=== PATIENT | female | born 1975 | race Caucasian/White ===

== ENCOUNTER → 2018-09-23 | Outpatient (CLI) | payer OTHER ==
--- NOTE | 2018-09-23 11:45 | XR ---
EXAMINATION TYPE: XR chest 2V DATE OF EXAM: 09/23/2018 COMPARISON: 07/23/2017 HISTORY: Chest pain TECHNIQUE: Frontal and lateral views of the chest are obtained. FINDINGS: There is no focal air space opacity. No evidence for pneumothorax. No pleural effusion. The cardiac silhouette size is within normal limits. The osseous structures are grossly intact. IMPRESSION: 1. No acute cardiopulmonary process.
== END | disposition home or self-care (01) ==
LOC: RADXRMAIN 10:56
PROVIDERS: ATTEND Internal Medicine Hematology & Oncology
DX: C50.312 Malignant neoplasm of lower-inner quadrant of left female breast (principal); D50.0 Iron deficiency anemia secondary to blood loss (chronic); F41.9 Anxiety disorder, unspecified; Z17.0 Estrogen receptor positive status [ER+]
CPT/HCPCS: 71046

== ENCOUNTER → 2020-01-12 | Outpatient (CLI) | payer BC ==
--- NOTE | 2020-01-12 14:37 | XR ---
EXAMINATION TYPE: XR chest 2V DATE OF EXAM: 01/12/2020 COMPARISON: Prior chest x-ray September 23, 2018 HISTORY: Breast cancer. TECHNIQUE: Frontal and lateral views of the chest are obtained. FINDINGS: There is no focal air space opacity, pleural effusion, or pneumothorax seen. The cardiac silhouette size is within normal limits. The osseous structures are intact. Overlying bilateral kaleigh ast implants are redemonstrated. IMPRESSION: No acute cardiopulmonary process. No significant change from prior.
== END | disposition home or self-care (01) ==
LOC: RADXRMAIN 13:55
PROVIDERS: ATTEND Internal Medicine Hematology & Oncology
DX: C50.312 Malignant neoplasm of lower-inner quadrant of left female breast (principal); D50.0 Iron deficiency anemia secondary to blood loss (chronic); F41.1 Generalized anxiety disorder; Z17.0 Estrogen receptor positive status [ER+]
CPT/HCPCS: 71046

== ENCOUNTER 2021-05-02 11:08 | Day surgery (SDC) | payer BC ==
[2021-04-30 12:51] VITALS: BMI 31.1
[~2021-05-02 11:08] MED LIST: LACTATED RINGERS 1,000 ML IV SCH
[2021-05-02 11:29] VITALS: TEMP 97.8
[2021-05-02] MEDS ORDERED: LACTATED RINGERS 1,000 ML IV ONE (11:32)
[2021-05-02] MEDS ORDERED: PROPOFOL 10 MG/ML 20 ML VIAL IV ONE (12:41)
[2021-05-02] MEDS ORDERED: LIDOCAINE 1% INJ 10MG/ML (20 ML MDV) ONE (12:41)
--- NOTE | 2021-05-02 12:57 | P.PCN ---
Date of Procedure: 05/02/21 Procedure(s) Performed: BRIEF HISTORY: Patient is a 45-year-old pleasant white female scheduled for an elective colonoscopy as a part of screening for colorectal neoplasia. PROCEDURE PERFORMED: Colonoscopy. PREOPERATIVE DIAGNOSIS: Screening for colon cancer. IV sedation per Anesthesia. PROCEDURE: After informed consent was obtained, the patient, was brought into the endoscopy unit. IV sedation was administered by Anesthesia under continuous monitoring. Digital rectal examination was normal. Initially the Olympus CF-160 flexible video colonoscope was then inserted in the rectum, gradually advanced into the cecum without any difficulty. Careful examination was performed as the scope was gradually being withdrawn. Ileocecal valve and the appendiceal orifice were visualized and appeared normal. Prep was excellent. Mucosa of the cecum, ascending colon, transverse colon, descending colon, sigmoid colon, and rectum appeared normal. Retroflexion was performed in the rectum and no lesions were seen. The patient tolerated the procedure well. IMPRESSION: Normal-appearing colon from rectum to cecum and hence of colorectal neoplasia. RECOMMENDATIONS: Findings of this examination were discussed with the patient as well as a family. She was advised to have a repeat screening colonoscopy in 10 years..
[2021-05-02 13:22] VITALS: RESP 16
[2021-05-02 13:39] VITALS: BP 121/78; PULSE 56
== END 2021-05-02 14:05 | disposition home or self-care (01) ==
LOC: ORWHC2ENDO 11:08
PROVIDERS: ATTEND Internal Medicine Gastroenterology
DX: Z12.11 Encounter for screening for malignant neoplasm of colon (principal); Z88.2 Allergy status to sulfonamides
CPT/HCPCS: 81025; J2001; J2704; G0121; 45378

== ENCOUNTER → 2025-01-26 | Outpatient (CLI) | payer BC ==
--- NOTE | 2025-01-26 12:26 | XR ---
EXAMINATION TYPE: XR cervical spine comp DATE OF EXAM: 01/26/2025 12:03 PM COMPARISON: None CLINICAL INDICATION: Female, 49 years old with history of M542 CERVICALGIA; YCH, pain TECHNIQUE: The cervical spine was imaged in frontal, lateral, odontoid and bilateral oblique. FINDINGS: The osseous structures show normal alignment without evidence of an acute fracture. There are minimal osteophytes noted throughout the cervical spine on the anterior and lateral aspects of the vertebral bodies. The intervertebral disk spaces are narrowed at multiple levels. Pedicles are intact. Soft t issues are within normal limits. The odontoid appears intact. IMPRESSION: 1. No fracture or dislocation. 2. Mild degenerative disc disease changes of the cervical spine. [facility], , 01/26/2025 12:24 PM
== END | disposition home or self-care (01) ==
LOC: RADXRYALE 11:52
PROVIDERS: ATTEND Internal Medicine
DX: M50.30 Other cervical disc degeneration, unspecified cervical region (principal)
CPT/HCPCS: 72050

== ENCOUNTER → 2025-02-04 | Outpatient (CLI) | payer BC ==
--- NOTE | 2025-02-07 13:41 | BD ---
EXAMINATION TYPE: Axial Bone Density DATE OF EXAM: 02/04/2025 CLINICAL HISTORY: 49 years old Female. ICD-10 CODE: M81.0 OSTEOPENIA , Additional History: Height: 61 Weight: 192.5 FRAX RISK QUESTIONS: Alcohol (3 or more units per day): no Family History (Parent hip fracture): no Glucocorticoids (More than 3mos): no (Ex: prednisone, prednisolone, methylprednisolone, dexamethasone, and hydrocortisone). History of Fracture in Adulthood: foot Secondary Osteoporosis: 1. Type 1 Diabetes: no 2. Hyperthyroidism: no 3. Menopause before 45: no 4. Malnutrition: no 5. Chronic liver disease: no Rheumatoid Arthritis: no Current Tobacco Use: no RISK FACTORS HISTORY OF: Hip Fracture (Right/Left): no Spine Fracture: no History of Wrist Fracture: no Surgery to Spine/Hip(right/left)/Wrist (right/left): no MEDICATIONS: Thyroid Medications: no Osteoporosis Medications: no Breast Ca. age 33 and chemo EXAM MEASUREMENTS: Bone mineral densitometry was performed using the [employer] System. Bone mineral density as measured about the Lumbar spine is: ----- L1-L4(G/cm2): 1.256 T Score Values are as follows: ----- L1: 0.3 ----- L2: 0.7 ----- L3: 0.6 ----- L4: 0.7 ----- L1-L4: 0.6 Z Score Values are as follows: ----- L1: 0.0 ----- L2: 0.5 ----- L3: 0.4 ----- L4: 0.5 ----- L1-L4: 0.4 Bone mineral density has: decreased -0.9 % since study of: 03/29/2011 Bone mineral density about the R hip (g/cm2): 0966 Bone mineral density about the L hip (g/cm2): 1.049 T Score values are as follows: -----R Neck: -0.4 -----L Neck: -0.5 -----R Total: -0.1 -----L Total: 0.3 Z Score values are as follows: -----R Neck: -0.1 -----L Neck: -0.2 -----R Total: -0.1 -----L Total: 0.3 Bone mineral density has: decreased -2.8 % since study of: 03/29/2011 FRAX%s: The graph provided illustrates a 6.9% chance for a major osteoporotic fx and a 0.2% chance fo r the hips probability for fx in 10 years time. IMPRESSION: Normal (Values between +1 and -1 indicate normal bone mass). Consider repeating this study in 5 year s or sooner if there is some new clinical indication. NOTE: T-SCORE=SD OF THE YOUNG ADULT MEAN. [facility], , 02/07/2025 1:39 PM
== END | disposition home or self-care (01) ==
LOC: RADBDWWP 16:22
PROVIDERS: ATTEND Internal Medicine Hematology & Oncology
DX: M81.0 Age-related osteoporosis without current pathological fracture (principal); D50.0 Iron deficiency anemia secondary to blood loss (chronic); F41.9 Anxiety disorder, unspecified; C50.312 Malignant neoplasm of lower-inner quadrant of left female breast; Z71.3 Dietary counseling and surveillance; Z17.0 Estrogen receptor positive status [ER+]
CPT/HCPCS: 77080